=== PATIENT | male | born 1955 | race Caucasian/White ===

== ENCOUNTER 2024-01-03 09:35 | Emergency (ER) | payer BC, SELFPAY ==
[2024-01-03 09:37] VITALS: BP 142/81
--- NOTE | 2024-01-03 11:53 | ED.MUSCINJ ---
HPI-Injury
General
Chief Complaint: Musculo-Skeletal Complaint
Source: patient
Exam Limitations: none
Nursing documentation reviewed up to this point in time: agreed with
Travel History
Have you had any contact with someone who has COVID-19?: No
Do you have any symptoms of coronavirus? Fever > 100 degrees, chills, cough, shortness of breath, sore throat, loss of taste or smell, muscle aches, or headache?: No
History of Present Illness-Injury
Initial Injury comments:
68-year-old male with no significant past medical history states about an hour ago he was playing softball. He was running the bases, dove to slide when the shortstop body slammed him in the right side upper back. He has had pain in that area
since which is worse with breathing. He denies any other injury.
Past History
Past History
ED Past Medical History: None
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
Social History
Tobacco: Non-smoker
Alcohol: Occasional
Personal:
Living: with family
Employment: Employed
Review of Systems
Review of Systems
Allergies reviewed?: Yes
All Other Systems: ROS reviewed and negative except as documented in HPI and ROS
Constitutional: Denies fever
Respiratory: Denies cough or trouble breathing
Cardiac: Denies chest pain
ABD/GI: Denies abdominal pain
Musculoskeletal: Reports back pain (right upper back); Denies neck pain
Skin: Reports no symptoms
Neurological: Reports no symptoms
Phy Exam
Physical Exam
Physical Exam:
GENERAL: No acute distress. A&Ox3.
CONSTITUTIONAL: Afebrile.
RESPIRATORY: Regular respirations, nonlabored, lungs clear.
CARDIOVASCULAR: Regular rate and rhythm, no murmurs, no rubs.
GI: Soft, nontender, normal BS
MUSCULOSKELETAL: Tender right side mid trapezius just medial to the scapula. No scapular tenderness. No bruising noted. Range of motion of right upper extremity. Moves with ease. Well perfused.
SKIN: Warm, dry, pink
PSYCH: Normal mood and affect. Well kept, interactive and appropriate
NEUROLOGIC: Awake, alert and oriented. No focal neurological deficits
Injury Course
Orders/Labs/Results
Orders:
Orders
01/03/24 10:35
CR Chest - 2 Views Urgent
Comment:
Reason For Exam: Chest pain
MDM/Problems Addressed
MDM/Problems Addressed:
68-year-old male with no significant past medical history states about an hour ago he was playing softball. He was running the bases, dove to slide when the shortstop body slammed him in the right side upper back. He has had pain in that area
since which is worse with breathing. He denies any other injury.
NAD, pulse ox 97% room air
11:55 AM
Chest x-ray radiology report read: No evidence of acute traumatic injury to the chest.
Patient reassured, states he was simply concerned about the status of his lungs.
*Critical Care Note
Total Time (30-74mins, 75-104mins- exclusive of procedures): Not Applicable
ED Attending Note
-
Portions of this chart may have been created with voice recognition software.� Occasional wrong word or��sound alike� substitutions may have occurred due to the inherent limitations of voice recognition software.
Discharge Plan
Departure
Patient Disposition: Home (Routine Discharge)
Date of Disposition: 01/03/24
Time of Disposition: 11:57
Patient with high blood pressure during this ER visit?: No
Condition: Good
Discharge Problem:
Contusion of right back wall of thorax
Instructions: Contusion (DC), Blunt Chest Trauma ED
Referrals:
Joseph Albarran MD [Family Provider] - As needed
Activity Restrictions/Additional Instructions:
As we discussed, your chest x-ray is normal.
Tylenol or ibuprofen as needed for pain.
Interventions
Interventions:
*General Assessment Last Done: 01/03/24 12:38
*ED COVID-19 Vaccine History Last Done: 01/03/24 09:45
*Nursing Disposition Last Done: 01/03/24 12:38
ED-Musculoskeletal Assessment Last Done: 01/03/24 09:54
Discharge Date and Time
Discharge Date/Time: 01/03/24 12:39
Print Language: OCCITAN
== END 2024-01-03 12:39 | disposition home or self-care (01) ==
LOC: EMR 09:35
PROVIDERS: EMERGENCY PHYSICIAN Emergency Medicine; FAMILY PHYSICIAN Family Medicine
DX: S20.221A Contusion of right back wall of thorax, initial encounter (principal); W50.0XXA Accidental hit or strike by another person, initial encounter; Y93.64 Activity, baseball; Z90.5 Acquired absence of kidney
CPT/HCPCS: 99283; 71046